=== PATIENT | female | born 1945 | race Caucasian/White ===

== ENCOUNTER 2019-11-14 00:36 | Inpatient (IN) | payer BC, MEDICAID ==
[~2019-11-14] VITALS: Ht 170.2 cm; Wt 52.5 kg
[~2019-11-14 00:36] MED LIST: CELEBREX 200 M200 M1; ENABLEX15 MG PO; LEVOTHROID; LEVOTHYROXIN0.112 M1; MACROBID 100 M100 M1 PO; NEURONTIN 300300 M1 PO; NEURONTIN 300M300 M2; PERCOCET 5-3251 EACH PO; PROTONIX40 M2 PO; RESTORIL
[2019-11-14] MEDS ORDERED: NORVASC5 M1 PO (00:47)
[2019-11-14] MEDS ORDERED: ARIMIDEX1 MG PO (00:47)
[2019-11-14] MEDS ORDERED: LIPITOR40 MG PO (00:48)
[2019-11-14] MEDS ORDERED: ASPIR 8181 M1 PO (00:48)
[2019-11-14] MEDS ORDERED: FUROSEMIDE 40 M40 MG PO (00:49)
[2019-11-14] MEDS ORDERED: CELEXA 20 MG TA20 MG PO (00:49)
[2019-11-14] MEDS ORDERED: IRON325 M1 PO (00:49)
[2019-11-14] MEDS ORDERED: ONE-A-DAY WOMENS PO (00:50)
[2019-11-14] MEDS ORDERED: LEVOTHYROXINE88 MCG PO (00:50)
[2019-11-14] MEDS ORDERED: TRAZODONE HCL50 MG PO (00:51)
[2019-11-14] MEDS ORDERED: PROTONIX40 M2 PO (00:51)
[2019-11-14] MEDS ORDERED: VITAMIN B-121000 MC2 PO (00:52)
[2019-11-14] MEDS ORDERED: VITAMIN D32000 UNIT PO (00:52)
[2019-11-14] MEDS ORDERED: KLOR-CON 1010 MEQ PO (00:53)
[2019-11-14] MEDS ORDERED: DIVALPROEX SOD125 MG PO (00:53)
[2019-11-14] MEDS ORDERED: ACETAMINOPHEN650 M5 PO (00:56)
[2019-11-14] MEDS ORDERED: LORAZEPAM 0.50.5 MG PO (00:56)
[2019-11-14] MEDS ORDERED: NYSTATIN100000 UNI (00:57)
[2019-11-14 01:13] LABS: ABSOLUTE BASOPHILS 0.1 thou/uL (0.0-0.2); ABSOLUTE LYMPHOCYTES 1.6 thou/uL (0.8-5.3); ABSOLUTE MONOCYTES 1.3 thou/uL (0.0-1.2); ABSOLUTE NEUTROPHILS 10.3 thou/uL (1.6-8.1); BASOPHILS 0.5 %; EOSINOPHILS 0.1 %; HEMATOCRIT 47.8 % (37.0-47.0); LYMPHOCYTES 12.3 %; MCH 32.2 pg (26.0-34.0); MCHC 33.4 g/dL (28.0-37.0); MCV 96.3 fL (80.0-100.0); MONOCYTES 9.5 %; MPV 10.4 fl. (7.2-11.1); NUCLEATED RBCS 0 /100WBC; PLATELET COUNT* 232 thou/uL (150-400); POLYS 77.6 %; RBC 4.96 mil/uL (4.20-5.00); RDW-CV 13.1 % (10.5-14.5); WBC 13.3 thou/uL (4.0-11.0)
[2019-11-14 01:31] LABS: CALCIUM 11.7 mg/dL (8.5-10.1); CREATININE 0.9 mg/dL (0.6-1.3); POTASSIUM 3.8 mmol/L (3.5-5.1)
[2019-11-14 01:37] LABS: ALBUMIN 4.4 g/dL (3.4-5.0); TOTAL BILIRUBIN 0.7 mg/dL (<0.1-1.0); TOTAL PROTEIN 7.6 g/dL (6.4-8.2)
[2019-11-14 02:03] LABS: URINE BLOOD NEGATIVE (Negative); URINE CLARITY CLOUDY; URINE COLOR YELLOW; URINE GLUCOSE-RANDOM NEGATIVE (Negative); URINE KETONES TRACE (Negative); URINE LEUKOCYTES-REFLEX NEGATIVE (Negative); URINE NITRITE-REFLEX NEGATIVE (Negative); URINE PROTEIN 1+ (Negative); URINE SPECIFIC GRAVITY >= 1.030 (1.005-1.030)
[2019-11-14 02:10] LABS: ICTOTEST (BILI CONFIRMATORY) Negative (Negative); URINE BILIRUBIN 1+ (Negative)
[2019-11-14 02:34] LABS: BACTERIA-REFLEX >30 Many /HPF (None Seen); HYALINE CASTS 0-3 Few /LPF (None Seen); MUCUS >6 Heavy strn/LPF (None Seen); SQUAMOUS 4-10 Moderate /LPF (0-3)
[2019-11-14 02:35] LABS: CRYSTALS None Seen /LPF (None Seen); URINE RBC None Seen /HPF (0-2); URINE WBC-REFLEX 6-15 Few /HPF (0-5)
[2019-11-14 03:31] VITALS: BP 158/94
[2019-11-14 04:45] VITALS: BP 122/75
[2019-11-14] MEDS ORDERED: NYSTATIN1 EA10 TOP (06:57)
[2019-11-14 08:30] VITALS: BP 170/99
[2019-11-14 10:00] LABS: CREATININE 0.8 mg/dL (0.6-1.3); POTASSIUM 3.6 mmol/L (3.5-5.1)
[2019-11-14 11:55] VITALS: BP 150/82
--- NOTE | 2019-11-14 12:55 | EKG ---
[place] [address] ELECTROCARDIOGRAM REPORT Name: AZCK FLOYD Room: [address] ADM IN M.R.#: [id number] Admission: 11/14/19 Attend Phys: Velma Agrawal MD Discharge: Date of : 47 Report #: [id number] THIS REPORT FOR: //name// [facility] ED Test Date: 2019-11-14 Test Time: 00:52:15 Pat Name: ZACK FLOYD Department: Room: [facility] Gender: F [employer] Operator: : [id number] Requested By: Toro Santana Order Number: [id number] MD: Lc Carl Measurements Intervals [place] Rate: 98 P: 37 [place]: 138 QRS: 63 QRSD: 95 T: -74 QT: 305 QTc: 390 Interpretive Statements Sinus rhythm Probable left atrial enlargement Inferior infarct, age indeterminate [possible Artifact in lead(s) I,II,III,aVR,aVL,aVF,V3,V5,V6 No previous ECG available for comparison Electronically Signed On 11-14-2019 12:54:59 CURATOR OF COLLECTIONS by Lc Carl [email or web address] <ELECTRONICALLY SIGNED> By: Lc Carl MD, [facility] 11/14/19 1254 [id number] Lc Carl MD, [facility] /EPI
[2019-11-14 13:58] LABS: CHOLESTEROL 123 mg/dL (<200); HDL CHOLESTEROL 43 mg/dL (>40); LDL CHOLESTEROL 65 mg/dL (<100); SERUM ASSESSMENT CLEAR; TC:HDL 2.9 Ratio (Not establshd); TRIGLYCERIDE 77 mg/dL (<150); VLDL 15 mg/dL (<40)
--- NOTE | 2019-11-14 16:37 | 2DMMODE ---
[place] [address] 2 D/M-MODE ECHOCARDIOGRAM Name: EVERETTZCAK S Room: [address] IN [facility]#: [id number] Admission: 11/14/19 Attend Phys: Velma Agrawal MD Discharge: Date of : 47 Date of Service: 11/14/19 1636 Report #: [id number] THIS REPORT FOR: //name// APPROVED REPORT Study performed: 11/14/2019 15:27:20 EXAM: Comprehensive 2D, Doppler, and color-flow Echocardiogram Patient Location: In-Patient Room #: [facility] Status: routine BSA: 1.57 HR: 101 bpm BP: 150/82 mmHg Rhythm: NSR Other Information Technically limited study due to uncooperative patient. Indications Elevated Troponin Aortic Valve AoV Peak Nicolas.: 1.30 m/s AO Peak Gr.: 6.78 mmHg LVOT Max P.69 mmHg AO Mean Gr.: 4.32 mmHg LVOT Mean P.43 mmHg LVOT Max V: 1.29 m/s AO V2 VTI: 19.10 cm LVOT Mean V: 0.86 m/s LVOT V1 VTI: 21.37 cm Mitral Valve E/A Ratio: 0.56 MV Decel. Time: 205.46 ms MV E Max Nicolas.: 0.47 m/s MV PHT: 59.58 ms MVA (PHT): 3.69 cm2 Left Ventricle The left ventricle is normal size. There is normal LV segmental wall motion. There is normal left ventricular wall thickness. Left ventricular systolic function is normal. The left ventricular ejection fraction is within the normal range. LVEF is 65%. Grade I - [place] [address] 2 D/M-MODE ECHOCARDIOGRAM Name: EVERETTZACK Vadim Room: [address] IN [facility].#: [id number] Admission: 11/14/19 Attend Phys: Velma Agrawal MD Discharge: Date of : 47 Date of Service: 11/14/19 1636 Report #: [id number] Right Ventricle The right ventricle is normal size. The right ventricular systolic function is normal. Atria The left atrium size is normal. The right atrium size is normal. Aortic Valve The aortic valve is normal in structure. No aortic regurgitation is present. There is no aortic valvular stenosis. Mitral Valve The mitral valve is normal in structure. There is no mitral valve regurgitation noted. No evidence of mitral valve stenosis. Tricuspid Valve The tricuspid valve is normal in structure. Unable to assess PA pressure. Trace tricuspid regurgitation. Pulmonic Valve The pulmonary valve is normal in structure. There is no pulmonic valvular regurgitation. Great Vessels The aortic root is normal in size. IVC is normal in size and collapses >50% with inspiration. Pericardium There is no pericardial effusion. <Conclusion> The left ventricle is normal size. There is normal left ventricular wall thickness. Left ventricular systolic function is normal. The left ventricular ejection fraction is within the normal range. LVEF is 65%. Grade I - abnormal relaxation pattern. The right ventricle is normal size. The left atrium size is normal. The aortic valve is normal in structure. The mitral valve is normal in structure. The tricuspid [place] [address] 2 D/M-MODE ECHOCARDIOGRAM Name: EVERETTZACK S Room: [address] IN .R.#: [id number] Admission: 11/14/19 Attend Phys: Velma Agrawal MD Discharge: Date of : 47 Date of Service: 11/14/191635 Report #: [id number] There is no pericardial effusion. There is normal LV segmental wall motion. <ELECTRONICALLY SIGNED> By: Lc Carl MD, FACC 11/14/191635 35 35 Lc Carl MD, FACC /INF
[2019-11-14 17:06] LABS: URINE CHLORIDE-RANDOM* 68 mmol/L
[2019-11-14 17:10] VITALS: BP 148/82
[2019-11-14 20:00] VITALS: BP 163/86
[2019-11-14 21:27] LABS: CALCIUM 10.4 mg/dL (8.5-10.1); CREATININE 0.9 mg/dL (0.6-1.3); POTASSIUM 3.2 mmol/L (3.5-5.1)
[2019-11-15] VITALS: BP 160/93
[2019-11-15 04:00] VITALS: BP 164/107
[2019-11-15 04:05] LABS: ABSOLUTE BASOPHILS 0.1 thou/uL (0.0-0.2); ABSOLUTE EOSINOPHILS 0.1 thou/uL (0.0-0.7); ABSOLUTE LYMPHOCYTES 1.5 thou/uL (0.8-5.3); ABSOLUTE NEUTROPHILS 9.4 thou/uL (1.6-8.1); BASOPHILS 0.7 %; EOSINOPHILS 0.5 %; HEMATOCRIT 43.6 % (37.0-47.0); HEMOGLOBIN 14.5 gm/dL (12.0-15.0); LYMPHOCYTES 12.5 %; MCH 32.3 pg (26.0-34.0); MCHC 33.3 g/dL (28.0-37.0); MCV 97.1 fL (80.0-100.0); MONOCYTES 8.4 %; NUCLEATED RBCS 0 /100WBC; PLATELET COUNT* 181 thou/uL (150-400); POLYS 77.9 %; RBC 4.49 mil/uL (4.20-5.00); RDW-CV 13.4 % (10.5-14.5)
[2019-11-15 04:20] LABS: ALBUMIN 3.7 g/dL (3.4-5.0); CALCIUM 10.3 mg/dL (8.5-10.1); CREATININE 0.8 mg/dL (0.6-1.3); PHOSPHORUS* 2.5 mg/dL (2.5-4.9); POTASSIUM 3.6 mmol/L (3.5-5.1)
[2019-11-15 08:26] VITALS: BP 157/78
[2019-11-15 11:30] VITALS: BP 173/95
[2019-11-15 15:36] VITALS: BP 138/81
[2019-11-15 19:50] VITALS: BP 136/89
[2019-11-15 21:16] LABS: CALCIUM 9.9 mg/dL (8.5-10.1); CREATININE 0.8 mg/dL (0.6-1.3); POTASSIUM 3.3 mmol/L (3.5-5.1)
[2019-11-16] VITALS: BP 126/66
[2019-11-16 04:00] VITALS: BP 102/57
[2019-11-16 10:15] VITALS: BP 120/61
[2019-11-16] MEDS ORDERED: TRAZODONE 150150 M1 PO (11:15)
[2019-11-16] MEDS ORDERED: AUGMENTIN 500-1 EACH PO (11:38)
[2019-11-16 11:41] VITALS: BP 120/61
== END 2019-11-16 14:00 | DRG 640 ==
LOC: M.ERS 00:36 → M.TBA-ER 01:44 → M.ERS 01:44 → M.TBA-ER 02:19 → M.2W 02:19
PROVIDERS: Emergency Medicine; Internal Medicine; ADMIT Family Medicine
DX: E87.0 Hyperosmolality and hypernatremia (principal); G93.41 Metabolic encephalopathy; N39.0 Urinary tract infection, site not specified; R65.10 Systemic inflammatory response syndrome (SIRS) of non-infectious origin without acute organ dysfunction; I50.32 Chronic diastolic (congestive) heart failure; E89.0 Postprocedural hypothyroidism; E86.0 Dehydration; F03.90 Unspecified dementia, unspecified severity, without behavioral disturbance, psychotic disturbance, mood disturbance, and anxiety; E78.5 Hyperlipidemia, unspecified; I11.0 Hypertensive heart disease with heart failure; M19.90 Unspecified osteoarthritis, unspecified site; K21.9 Gastro-esophageal reflux disease without esophagitis; Z90.49 Acquired absence of other specified parts of digestive tract; Z90.710 Acquired absence of both cervix and uterus; Z88.6 Allergy status to analgesic agent; Z91.041 Radiographic dye allergy status